=== PATIENT | male | born 1935 | race Caucasian/White ===

== ENCOUNTER → 2019-01-30 17:25 | Outpatient (REF) | payer MEDICARE, OTHER, SELFPAY ==
[2019-01-30 18:24] LABS: HEMOLYSIS < 15 (0-50)
[2019-01-30 18:37] LABS: Digoxin 0.8 ng/mL (0.8-2.0)
[2019-01-30 18:48] LABS: Alanine Aminotransferase 44 IU/L (21-72); Albumin 4.5 g/dL (3.5-5.0); Albumin Globulin Ratio 1.5 (1.0-2.8); Alkaline Phosphatase 63 U/L (38-126); Aspartate Aminotransferase 37 IU/L (17-59); Bilirubin Total 0.8 mg/dL (0.2-1.3); Blood Urea Nitrogen 33 mg/dL (9-20); Calcium 9.6 mg/dL (8.4-10.2); Carbon Dioxide 30 mmol/L (22-32); Chloride 99 mmol/L (98-107); Cholesterol 136 mg/dL (140-199); Estimated Glomerular Filt Rate > 60.0 mL/min (>60); Glucose 96 mg/dL (80-110); HDL Cholesterol 51 mg/dL (40-60); LDL Cholesterol Calculated 70 mg/dL (<100); Potassium 4.2 mmol/L (3.4-5.1); Sodium 138 mmol/L (137-145); Total Protein 7.5 g/dL (6.3-8.2); Triglycerides 73 mg/dL (35-150)
[2019-01-30 19:00] LABS: Prostate Specific Antigen 2.81 ng/mL (0.10-4.00)
== END ==
LOC: LAB 17:25
PROVIDERS: Visit Provider Family Medicine Geriatric Medicine
DX: E11.9 Type 2 diabetes mellitus without complications (principal); D40.0 Neoplasm of uncertain behavior of prostate; I10 Essential (primary) hypertension; Z79.899 Other long term (current) drug therapy
CPT/HCPCS: 36415; 80053; 80061; 80162; 83036; 84153